=== PATIENT | female | born 1940 | race Caucasian/White ===

== ENCOUNTER → 2018-04-06 | Outpatient (CLI) | payer MEDICARE ==
--- NOTE | 2018-04-07 10:34 | MM ---
Reason for exam: screening (asymptomatic). Last mammogram was performed 2 years ago. History: Patient is postmenopausal. Physical Findings: A clinical breast exam by your physician is recommended on an annual basis and results should be correlated with mammographic findings. MG Screening Mammo w CAD Bilateral CC and MLO view(s) were taken. Prior study comparison: April 16, 2016, bilateral MG screening mammo w CAD. August 31, 2014, bilateral MG screening mammo w CAD. The breast tissue is heterogeneously dense. This may lower the sensitivity of mammography. Finding: There are typically benign round, linear calcifications in both breasts. There is no discrete abnormality. ASSESSMENT: Benign, BI-RAD 2 RECOMMENDATION: Routine screening mammogram of both breasts in 1 year.
== END ==
LOC: RADMAMWWP 14:32
PROVIDERS: ATTEND Family Medicine
DX: Z12.31 Encounter for screening mammogram for malignant neoplasm of breast (principal)
CPT/HCPCS: 77067

== ENCOUNTER → 2018-05-20 | Outpatient (CLI) | payer MEDICARE ==
--- NOTE | 2018-05-20 16:03 | BD ---
EXAMINATION TYPE: Axial Bone Density DATE OF EXAM: 05/20/2018 COMPARISON: 08/31/2014 CLINICAL HISTORY: Height: 60.5 IN Weight: 171 LBS RISK FACTORS HISTORY OF: Active: YES Postmenopausal woman: AGE 50 Take estrogen and/or progesterone medications: NOT NOW How long: AGE 50 - 55 MEDICATIONS: Thyroid Medications: YES Which medication: LEVOTHYROXINE How Lon+ YEARS Additional Medications: LEVOTHYROXINE, CALCIUM, VIT D,BLOOD PRESSURE MEDS, MULTI VITAMIN, LOW DOSE PIRIN, MAGNESIUM, FISH OIL, VIT C EXAM MEASUREMENTS: Bone mineral densitometry was performed using the [employer] System. Bone mineral density as measured about the Lumbar spine is: ----- L1-L4(G/cm2): 1.100 T Score Values are as follows: ----- L2: -1.0 ----- L3: -0.7 ----- L4: -0.5 ----- L1-L4: -0.7 Bone mineral density has: Increased 4.3% since study of: 08/31/2014 Bone mineral density about the R hip (g/cm2): 0.854 Bone mineral density about the L hip (g/cm2): 0.896 T Score values are as follows: -----R Neck: -1.3 -----L Neck: -1.0 -----R Total: -0.2 -----L Total: -0.4 Bone mineral density has: Increased 1.2% since study of: 08/31/2014 IMPRESSION: No evidence for osteoporosis or osteopenia. NOTE: T-SCORE=SD OF THE YOUNG ADULT MEAN.
== END ==
LOC: RADBDWWP 08:29
PROVIDERS: ATTEND Family Medicine
DX: Z13.820 Encounter for screening for osteoporosis (principal); Z78.0 Asymptomatic menopausal state
CPT/HCPCS: 77080

== ENCOUNTER 2018-06-17 08:22 | Day surgery (SDC) | payer MEDICARE ==
[2018-06-15 11:32] VITALS: BMI 32.1
[~2018-06-17 08:22] MED LIST: LACTATED RINGERS 1,000 ML IV SCH; LIDOCAINE 1% 20 ML VIAL (10MG/ML) FOR IV START INTRADERMA PRN
[2018-06-17 09:11] VITALS: RESP 18; TEMP 97.2
[2018-06-17] MEDS ORDERED: MIDAZOLAM 2 MG/2 ML VIAL ONE (09:12)
[2018-06-17] MEDS ORDERED: fentaNYL (PF) 50 MCG/ML 2 ML AMP ONE (09:12)
[2018-06-17] MEDS ORDERED: PROPOFOL 10 MG/ML 20 ML VIAL IV ONE (09:12)
--- NOTE | 2018-06-17 09:26 | P.PCN ---
Date of Procedure: 06/17/18 Procedure(s) Performed: BRIEF HISTORY: Patient is a 77-year-old pleasant white female, scheduled for an elective colonoscopy as a part of evaluation of prior history of colon polyps. Last colonoscopy was 3 years ago and was noted to have an adenoma. PROCEDURE PERFORMED: Colonoscopy. PREOPERATIVE DIAGNOSIS: History of colon polyps. IV sedation per Anesthesia. PROCEDURE: After informed consent was obtained, the patient, was brought into the endoscopy unit. IV sedation was administered by Anesthesia under continuous monitoring. Digital rectal examination was normal. Initially the Olympus CF- 160 flexible video colonoscope was then inserted in the rectum, gradually advanced into the cecum without any difficulty. Careful examination was performed as the scope was gradually being withdrawn. Ileocecal valve and the appendiceal orifice were visualized and appeared normal. Prep was excellent. Mucosa of the cecum, ascending colon, transverse colon, descending colon, sigmoid colon, and rectum appeared normal. Scattered left sided diverticulosis. Retroflexion was performed in the rectum and no lesions were seen. The patient tolerated the procedure well. IMPRESSION: Normal-appearing colon from rectum to cecum with no evidence of colorectal neoplasia Scattered sigmoid diverticulosis RECOMMENDATIONS: Findings of this examination were discussed with the patient as well as her family. She was advised to have a repeat surveillance colonoscopy in 5 years because of the prior history of colon polyps.
[2018-06-17 09:52] VITALS: BP 167/79; PULSE 60
== END 2018-06-17 10:29 | disposition home or self-care (01) ==
LOC: ORWHC2ENDO 08:22
PROVIDERS: ATTEND Internal Medicine Gastroenterology
DX: Z12.11 Encounter for screening for malignant neoplasm of colon (principal); K57.30 Diverticulosis of large intestine without perforation or abscess without bleeding; E07.9 Disorder of thyroid, unspecified; Z86.010 Personal history of colon polyps; Z79.82 Long term (current) use of aspirin; Z79.899 Other long term (current) drug therapy; Z88.0 Allergy status to penicillin; Z88.8 Allergy status to other drugs, medicaments and biological substances
CPT/HCPCS: J2250; J3010; J2704; G0105; 45378

== ENCOUNTER → 2020-08-08 | Outpatient (CLI) | payer MEDICARE ==
--- NOTE | 2020-08-08 16:13 | MR ---
EXAMINATION TYPE: MR shoulder RT wo con DATE OF EXAM: 08/08/2020 COMPARISON: None HISTORY: 79-year-old female M25.511, Right shoulder pain for 5 months. TECHNIQUE: Multiplanar, multisequence imaging of the right shoulder is performed without contrast. FINDINGS: The long head biceps tendon appears grossly intact and remains appropriate situated in the along the bicipital groove. Heterogeneity of the subscapularis tendon which appears intact. Moderate to severe degenerative change at the acromioclavicular joint with joint space narrowing, sub chondral edema, capsular hypertrophy, and marginal spurring. The spurring mildly impinges onto the un derlying myotendinous junction of the supraspinatus. There is a high-grade bursal sided tear of the anterior to mid supraspinatus tendon measuring 1.3 cm AP and 1.3 cm long. Thickening and heterogeneity of the remainder of both the supraspinatus and infraspinatus tendons. There is moderate effusion within the anterior subacromial/subdeltoid bursa and either fluid extendin g medially or ganglion cyst formation extending medially along the superior margin of the supraspinat us muscle belly measuring 5.5 cm long by 1.0 cm craniocaudal by 1.7 cm wide. There is isolated moderate atrophy of the teres minor muscle belly but no mass lesion within the quad rilateral space. Moderate diffuse thinning of superior half humeral head articular cartilage. Degenerative subchondral signal changes within the inferior glenoid. Degenerative signal in the superior labrum but without any perilabral cyst. Physiologic glenohumeral joint fluid. No Hill-Sachs deformity or os acromiale. No suspicious bone marrow replacement. IMPRESSION: 1. Marked diffuse rotator cuff tendinosis with a high-grade bursal sided tear of the anterior to mid supraspinatus tendon measuring 1.3 x 1.3 cm. Only a few articular sided fibers remain intact. 2. Moderate to severe AC joint OA with mild impingement onto the underlying cuff. 3. Isolated moderate fatty atrophy of the teres minor. No mass lesion within the quadrilateral space. 4. Moderate effusion in the subacromial/subdeltoid bursa, likely reactive, and an elongated 5.5 x 1.0 x 1.7 cm ganglion cyst extending medially along the superior margin of the supraspinatus muscle. 5. Mild degenerative change in the glenohumeral joint.
== END | disposition home or self-care (01) ==
LOC: RADMRIMAIN 10:30
PROVIDERS: ATTEND Family Medicine
DX: M75.111 Incomplete rotator cuff tear or rupture of right shoulder, not specified as traumatic (principal); M19.011 Primary osteoarthritis, right shoulder; M67.813 Other specified disorders of tendon, right shoulder; M62.511 Muscle wasting and atrophy, not elsewhere classified, right shoulder

== ENCOUNTER 2020-10-18 05:53 | Day surgery (SDC) | payer MEDICARE ==
[2020-10-16 13:03] VITALS: BMI 29.8
--- NOTE | 2020-10-17 15:31 | HP ---
HISTORY AND PHYSICAL REASON FOR ADMISSION: Surgery scheduled for 10/18/2020 HISTORY OF PRESENT ILLNESS: Sherry Ba is a 79-year-old patient seen with progressive right shoulder pain. We discussed options for treatment. She elected to proceed with arthroscopy. Consent was obtained. PAST MEDICAL HISTORY: Hypertension, hypothyroidism. PAST SURGICAL HISTORY: Lumbar decompression. MEDICATIONS: Levothyroxine, losartan. ALLERGIES: AMOXICILLIN, and PARAFON FORTE. SOCIAL HISTORY: She denies tobacco use. PHYSICAL EVALUATION OF THE RIGHT SHOULDER: Flexion 150 degrees, abduction 140 degrees, external rotation is 30 degrees with some pain, weakness. Tenderness along the anterior lateral acromion and rotator cuff insertion site. Impingement positive at 90. Drop-arm sign is positive. Cross adduction sign is positive. Distal neurovascular exam is intact. RADIOGRAPHS: Right shoulder radiographs revealed a type 2 acromion evidence for acromioclavicular joint osteoarthritis and cystic changes of the greater tuberosity. Right shoulder MRI revealed a rotator cuff tendon tear along with acromioclavicular joint osteoarthritis. IMPRESSION: 1. Right shoulder impingement with rotator cuff tear. 2. Right shoulder acromioclavicular joint osteoarthritis. 3. Hypertension. 4. Hypothyroidism. PLAN: Right shoulder arthroscopy with subacromial decompression, arthroscopic rotator cuff repair, Whitley procedure and debridement. Surgery scheduled for 10/18/2020. MMODL / IJN: [id number] /
[~2020-10-18 05:53] MED LIST changes: +DEXAMETHASONE SOD PHOSPHATE 4 MG/ML 1 ML VIAL IV ONE; -LACTATED RINGERS 1,000 ML IV SCH; +LIDOCAINE 1% (10MG/ML) FOR IV START INTRADERMA PRN; -LIDOCAINE 1% 20 ML VIAL (10MG/ML) FOR IV START INTRADERMA PRN; +ONDANSETRON 4 MG/2 ML VIAL IVP ONE
[2020-10-18] MEDS: LACTATED RINGERS 1,000 ML IV SCH ×2 (06:56→07:22)
[2020-10-18] MEDS ORDERED: HYDROmorphone 0.5 MG/0.5 ML SYRINGE IVP PRN (07:00)
[2020-10-18] MEDS ORDERED: MIDAZOLAM 2 MG/2 ML VIAL IVP ONE (07:02)
[2020-10-18] MEDS ORDERED: fentaNYL (PF) 50 MCG/ML 2 ML AMP ONE (07:25)
[2020-10-18] MEDS ORDERED: ROPIVACAINE 5 MG/ML 30 ML VIAL ONE (07:25)
[2020-10-18] MEDS ORDERED: ePHEDrine SULFATE/0.9% NACL/PF 50 MG/5 ML SYRINGE IV ONE (07:25)
[2020-10-18] MEDS ORDERED: SUCCINYLCHOLINE CHLORIDE 100 MG/5 ML SYR IV ONE (07:25)
[2020-10-18] MEDS ORDERED: GLYCOPYRROLATE 0.2 MG/ML 2 ML VIAL ONE (07:25)
[2020-10-18] MEDS ORDERED: LIDOCAINE 1% INJ 10MG/ML (20 ML MDV) ONE (07:25)
[2020-10-18] MEDS ORDERED: PROPOFOL 10 MG/ML 20 ML VIAL IV ONE (07:25)
[2020-10-18] MEDS ORDERED: MIDAZOLAM 2 MG/2 ML VIAL ONE (07:25)
[2020-10-18 08:51] VITALS: TEMP 96.8
--- NOTE | 2020-10-18 08:57 | P.OP ---
Date of Procedure: 10/18/20 Preoperative Diagnosis: Right shoulder impingement Postoperative Diagnosis: 1. Right shoulder rotator cuff tear 2. Right shoulder impingement 3. Right shoulder acromioclavicular joint osteoarthritis 4. Right shoulder partial long head biceps tendon tear Procedure(s) Performed: 1. Right shoulder arthroscopic rotator cuff repair 2. Right shoulder arthroscopic subacromial decompression 3. Right shoulder arthroscopic Whitley procedure 4. Right shoulder arthroscopic biceps tenotomy Implants: 15.5 Arthrex a lock anchor Anesthesia: GETA, regional (Interscalene block) Surgeon: Adrian Tracy Ocular Care Technologist #1: Ricardo Deglado Estimated Blood Loss (ml): 7 Pathology: none sent Condition: stable Disposition: PACU Indications for Procedure: 79-year-old patient seen with progressive right shoulder pain. After having treatment options discussed, she elected to proceed with arthroscopy. Operative Findings: See description of procedure Description of Procedure: Patient underwent an interscalene block by department of anesthesia. The patient was then taken to the operative suite. The patient underwent a general anesthetic by the department of anesthesia. The patient was placed into a lateral position and secured. There was appropriate padding of the bony prominence. Right shoulder was then prepped and draped in normal sterile orthopedic fashion. We placed the extremity in 10 pounds of longitudinal traction. A posterior incision was now made for a posterior working portal site. The trocar and cannula were inserted into the glenohumeral joint. Arthroscopy was initiated. Spinal needle was now inserted anteriorly, to ascertain the anterior working portal site. An incision was now made in that area, a trocar was inserted followed by a probe. There was some partial tearing and hyperemia long head biceps tendon. There was grade 1/2 chondromalacia changes of the inferior humeral head and grade 1 chondromalacia changes of the glenoid fossa. The labrum was probed and found to be stable. I performed an arthroscopic biceps tenotomy. The labrum was again probed and found to be stable. Instruments were now removed from glenohumeral joint. Utilizing the posterior working portal site, the trocar and cannula were inserted into the subacromial space. Arthroscopy initiated. I made an incision 2 fingerbreadths lateral to the acromion. I introduced my trocar followed by my ArthroCare ablator. I now began ablating thick subacromial bursal tissue, which exposed the undersurface of the anterior acromion. There was diminished subacromial space. There was a very prominent anterior acromion. A motorized bur was introduced and a subacromial decompression was performed. I also excised some osteophytes off the inferior aspect of the distal clavicle. The AC joint was visualized and noted to be fairly arthritic. The motorized bur was introduced in the anterior portal site and a Whitley procedure was performed without difficulty, decompressing the AC joint nicely. I turned my attention to the rotator cuff. There was a 1.5 cm rotator cuff tear. I debrided the margins getting down to stable tendon tissue. I abraded the footprint with a motorized bur. With the assistance of Ricardo VENCES and passed 3 everted mattress sutures good bites of rotator cuff tendon. I punched the hole in the footprint area for insertion of an anchor. All 6 limbs of suture were passed through the eyelet of a 5.5 Arthrex swivel lock anchor. I placed the eyelet into the pre- punch hole and held in position while Ricardo VENCES tension all the sutures and applied anchor with good fixation noted. All residual suture limbs were now clipped. We had good compression of the tendon along the entire footprint. Instruments now removed from the portal sites. All portal sites were approximated with nylon suture. Sterile dressings were applied followed by a shoulder sling. Ricardo VENCES assisted in this complex case. The patient was awakened, transferred to a bed, and taken to recovery in stable condition.
[2020-10-18 10:13] VITALS: RESP 17
--- NOTE | 2020-10-18 11:18 | P.ANPRN ---
Procedure Note - Anesthesia - Nerve Block Performed Right Interscalene Time Out Performed: Yes (07:01) Date of Procedure: 10/18/20 Procedure Start Time: : Procedure Stop Time: :16 Location of Patient: PreOp Indication: Acute Post-Operative Pain, Requested by Surgeon (Dr Tracy) Sedation Type: Sedate with meaningful contact maintained Preparation: Sterile Prep Position: Supine Catheter: None Needle Types: Pajunk Needle Gauge: Other (see comment) (22g) Ultrasound used to visualize needle placement: Yes Ultrasound used to observe medication spread: Yes Injectate: 0.5% Ropivacaine (see comment for volume) (20cc) Blood Aspirated: No Pain Paresthesia on Injection Noted: No Resistance on Injection: Normal Image Stored and Saved: Yes Events: Uneventful and Well Tolerated
[2020-10-18 11:23] VITALS: BP 141/79; PULSE 86
== END 2020-10-18 11:29 | disposition home or self-care (01) ==
LOC: OR 05:53
PROVIDERS: ATTEND Orthopaedic Surgery
DX: M75.101 Unspecified rotator cuff tear or rupture of right shoulder, not specified as traumatic (principal); M25.811 Other specified joint disorders, right shoulder; M19.011 Primary osteoarthritis, right shoulder; S46.111A Strain of muscle, fascia and tendon of long head of biceps, right arm, initial encounter; X58.XXXA Exposure to other specified factors, initial encounter; M94.211 Chondromalacia, right shoulder; M25.711 Osteophyte, right shoulder; I10 Essential (primary) hypertension; E03.9 Hypothyroidism, unspecified; Z98.890 Other specified postprocedural states; Z79.890 Hormone replacement therapy; Z79.899 Other long term (current) drug therapy; Z79.82 Long term (current) use of aspirin; Z88.0 Allergy status to penicillin; Z88.8 Allergy status to other drugs, medicaments and biological substances
CPT/HCPCS: 64415; 76942; 29826; 29827; 29824; C1713; J2250; J1100; J0690; J2405; J2001; J3010; J2795; J0330; J2704

== ENCOUNTER → 2021-07-20 | Outpatient (CLI) | payer MEDICARE ==
--- NOTE | 2021-07-24 10:51 | MM ---
Reason for exam: screening (asymptomatic). Last mammogram was performed 3 years and 3 months ago. History: Patient is postmenopausal. Physical Findings: A clinical breast exam by your physician is recommended on an annual basis and results should be correlated with mammographic findings. MG 3D Screening Mammo W/Cad Bilateral CC and MLO view(s) were taken. Prior study comparison: April 06, 2018, bilateral MG screening mammo w CAD. April 16, 2016, bilateral MG screening mammo w CAD. The breast tissue is heterogeneously dense. This may lower the sensitivity of mammography. There are benign appearing regional, linear calcifications bilaterally. There is no discrete abnormality. ASSESSMENT: Benign, BI-RAD 2 RECOMMENDATION: Routine screening mammogram of both breasts in 1 year.
== END | disposition home or self-care (01) ==
LOC: RADMAMWWP 11:01
PROVIDERS: ATTEND Family Medicine
DX: Z12.31 Encounter for screening mammogram for malignant neoplasm of breast (principal); Z78.0 Asymptomatic menopausal state
CPT/HCPCS: 77063; 77067

== ENCOUNTER → 2022-10-10 | Outpatient (CLI) | payer MEDICARE ==
[2022-10-10 14:39] LABS: African American GFR (CKD) 50 (>60 ml/min/1.73 sqM); Blood Urea Nitrogen 28 mg/dL (7-17); Non-African American GFR(CKD) 44 (>60 ml/min/1.73 sqM)
--- NOTE | 2022-10-11 08:02 | CT ---
EXAMINATION TYPE: CT sinus w con DATE OF EXAM: 10/10/2022 COMPARISON: None HISTORY: pulsating in right ear CT DLP: 435.9 mGycm Automated exposure control for dose reduction was used. CONTRAST: CT scan of the facial bones is performed with IV Contrast, patient injected with 65cc mL of Isovue 30 0. TECHNIQUE: CT scan of the sinuses is performed without contrast, axial images are obtained, coronal r eformatted images are also reviewed. FINDINGS: The paranasal sinuses including the frontal, ethmoid, sphenoid, and maxillary sinuses bila terally are well-aerated without abnormal opacification. The ostiomeatal complex is patent bilateral ly on the coronal images. Visualized portion of mastoid air cells show no abnormal opacification. The globes are intact bilate rally. Intraluminal external auditory canals appear symmetric. No evidence for cholesterol granuloma or chol esteatoma. IMPRESSION: No distinct abnormality to account for the patient's symptoms. If symptoms persist consid er MRI brain with IAC evaluation.
== END | disposition home or self-care (01) ==
LOC: RADCTMAIN 13:54
PROVIDERS: ATTEND Family Medicine
DX: H92.01 Otalgia, right ear (principal); H69.81 Other specified disorders of Eustachian tube, right ear; H70.11 Chronic mastoiditis, right ear
CPT/HCPCS: 82565; 84520; 36415; 70487; Q9967

== ENCOUNTER → 2022-12-16 | Outpatient (CLI) | payer MEDICARE ==
--- NOTE | 2022-12-16 12:25 | MR ---
EXAMINATION TYPE: MR angio head wo/neck wo/w con DATE OF EXAM: 12/16/2022 COMPARISON: CT 10/10/2022 HISTORY: Pulsatile tinnitus. TECHNIQUE: Utilizing 3-D [id number] intracranial MRA of the [place] was performed. FINDINGS: The vertebrobasilar and carotid systems are patent. Left vertebral artery is dominant. There is ectasia in the bilateral cavernous segment ICA greater on the right. 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 Anterior cerebral and middle cerebral arteries are patent. Anterior communicating artery patent and n o evidence of aneurysm. There is a hypoplastic A1 segment on the right. Posterior cerebral artery on the right originates from the anterior circulation. The carotid bifurcations appear to be patent bilaterally with no significant stenosis. Mild atheroscl erotic plaque. IMPRESSION: 1. No significant carotid bifurcation stenosis. 2. 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 3. There is question of thinning of the carotid plate along the right carotid canal. Aberrant ICA in the differential diagnosis. The previous sinus CT with contrast has been reviewed. Would recommend hi gh resolution post contrast IAC CT scan.
== END | disposition home or self-care (01) ==
LOC: RADMRIMAIN 09:04
PROVIDERS: ATTEND Otolaryngology
DX: I67.1 Cerebral aneurysm, nonruptured (principal); H93.19 Tinnitus, unspecified ear
CPT/HCPCS: 70544; 70549; A9585

== ENCOUNTER → 2023-06-24 | Outpatient (CLI) | payer MEDICARE ==
--- NOTE | 2023-06-24 19:10 | BD ---
EXAMINATION TYPE: Axial Bone Density DATE OF EXAM: 06/24/2023 CLINICAL HISTORY: 82 years old Female. ICD-10 CODE: Z78.0 ASYMPTOMATIC MENOPAUSAL STA Height: 60.25 Weight: 162 FRAX RISK QUESTIONS: History of Fracture in Adulthood: no Secondary Osteoporosis: no RISK FACTORS HISTORY OF: Surgery to Spine/Hip(right/left)/Wrist (right/left): no MEDICATIONS: Thyroid Medications: yes Which medication: Levothyroxine How Lon+ years EXAM MEASUREMENTS: Bone mineral densitometry was performed using the [employer] System. Bone mineral density as measured about the Lumbar spine is: ----- L1-L4(G/cm2): 1.078 T Score Values are as follows: ----- L1: -1.0 ----- L2: -0.9 ----- L3: -0.4 ----- L4: -1.2 ----- L1-L4: -0.9 Z Score Values are as follows: ----- L1: 0.6 ----- L2: 0.7 ----- L3: 1.2 ----- L4: 0.4 ----- L1-L4: 0.7 Bone mineral density has: Increased 4.1% since study of: 08/31/2014 Bone mineral density about the R hip (g/cm2): 0.963 Bone mineral density about the L hip (g/cm2): 0.911 T Score values are as follows: -----R Neck: -1.4 -----L Neck: -1.7 -----R Total: -0.4 -----L Total: -0.8 Z Score values are as follows: -----R Neck: 0.7 -----L Neck: 0.4 -----R Total: 1.6 -----L Total: 1.2 Bone mineral density has: Decreased -2.5% since study of: 08/31/2014 FRAX%s: The graph provided illustrates a 13.7% chance for a major osteoporotic fx and a 3.7% chance f or the hips probability for fx in 10 years time. IMPRESSION: Osteopenia (T Score between -2.5 and -1). There is slightly increased risk of fracture and the patient may be considered for treatment. Re-Screen 2-5 years. NOTE: T-SCORE=SD OF THE YOUNG ADULT MEAN.
--- NOTE | 2023-06-25 13:13 | MM ---
Reason for Exam: Screening (asymptomatic). Last mammogram was performed 1 year(s) and 11 month(s) ago. Patient History: Menarche at age 13. First Full-Term at age 22. Postmenopausal. Risk Values: Fanny 5 year model risk: 1.4%. NCI Lifetime model risk: 1.9%. Prior Study Comparison: 04/16/2016 Bilateral Screening Mammogram, [facility]. 04/06/2018 Bilateral Screening Mammogram, [facility]. 07/20/2021 Bilateral Screening Mammogram, [facility]. Tissue Density: The breast tissue is heterogeneously dense. This may lower the sensitivity of mammography. Findings: Analyzed By CAD. Left breast: There is no suspicious group of microcalcifications or new suspicious mass. There is a mass 14.6 cm from the nipple on RCC view, lateral aspect, posterior depth. Not definitively seen on other exams this may be in the axilla. Overall Assessment: Incomplete: need additional imaging evaluation, BI-RAD 0 Management: Diagnostic Breast Ultrasound of the right breast. [facility] will attempt to contact patient to return for supplemental views and ultrasound if indicated. Patient should continue monthly self-breast exams. A clinical breast exam by your physician is recommended on an annual basis. This exam should not preclude additional follow-up of suspicious palpable abnormalities. Note on Fanny scores and lifetime risk: 1. A Fanny score greater than 3% is considered moderate risk. If this is the case, consider specialist referral to assess eligibility for a risk reducing agent. 2. If overall lifetime risk for the development of breast cancer is 20% or higher, the patient may qualify for future screening with alternating mammogram and breast MRI. Electronically signed and approved by: Romaine Sheehan DO
== END | disposition home or self-care (01) ==
LOC: RADMAMWWP 07:59
PROVIDERS: ATTEND Family Medicine
DX: Z12.31 Encounter for screening mammogram for malignant neoplasm of breast (principal); M85.89 Other specified disorders of bone density and structure, multiple sites; Z78.0 Asymptomatic menopausal state
CPT/HCPCS: 77063; 77067; 77080

== ENCOUNTER → 2023-07-02 | Outpatient (CLI) | payer MEDICARE ==
--- NOTE | 2023-07-03 07:44 | USB ---
Reason for Exam: Additional evaluation requested from abnormal screening. Patient History: Menarche at age 13. First Full-Term at age 22. Postmenopausal. Risk Values: Fanny 5 year model risk: 1.4%. NCI Lifetime model risk: 1.9%. Technique: Method: Targeted. Prior Study Comparison: 04/06/2018 Bilateral Screening Mammogram, [facility]. 07/20/2021 Bilateral Screening Mammogram, [facility]. 06/24/2023 Bilateral MG 3D screening mammo w/cad, [facility]. Findings: The upper outer quadrant of the right breast, the axilla of the right breast and the retroareolar of the right breast were scanned. Targeted ultrasound right breast upper outer quadrant 9:00 to 12:00 including scanning of the subareolar region and axilla. * At the 9:00 position, 2 cm from the nipple, there is a tiny benign 4 mm cyst. * No other solid or cystic lesion. * No axillary lymphadenopathy. Overall Assessment: Probably benign, BI-RAD 3 Management: Diagnostic Mammogram of the right breast in 6 months. A clinical breast exam by your physician is recommended on an annual basis and results should be correlated with mammographic findings. This exam should not preclude additional follow-up of suspicious palpable abnormalities. Results were given to the patient verbally at the time of exam. Electronically signed and approved by: Gregory Casey M.D. Radiologis
== END | disposition home or self-care (01) ==
LOC: RADUSWWP 14:50
PROVIDERS: ATTEND Family Medicine
DX: R92.8 Other abnormal and inconclusive findings on diagnostic imaging of breast (principal); Z78.0 Asymptomatic menopausal state

== ENCOUNTER → 2024-02-06 | Outpatient (CLI) | payer MEDICARE ==
--- NOTE | 2024-02-06 15:01 | MR ---
EXAMINATION TYPE: MR angio head wo/neck wo/w con DATE OF EXAM: 02/06/2024 COMPARISON: 12/16/2022 HISTORY: 83-year-old female I67.1, nonruptured cerebral aneurysm. F/U comparison to prior MRA 12-16-22 . Technique: Xheo-ij-snohxw imaging of both the neck and head with rotational 3-D reconstructions. Jas tional multiple planar, multi sequence pre and postcontrast scanning of the head and neck before and after administration of 7 mL IV Gadavist. FINDINGS: Head: The bilateral vertebral and basilar arteries are patent. There is persistent origin right poste rior cerebral artery. Remainder of the posterior circulation is patent. Patent, small caliber left po sterior communicating artery. The bilateral internal carotid arteries are patent. No significant stenosis. Redemonstrated tiny 2 mm aneurysm from the lateral margin of the cavernous segment right ICA, axial i mage 90. In addition, there is a stable tiny 2 mm infundibulum from the origin of the right posterior communic ating artery, axial image 100. No other changes identified. NECK: There is normal course, caliber, and contour of the bilateral vertebral arteries as well as the commo n and internal carotid arteries. No significant stenosis. IMPRESSION: HEAD: 1. 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 2. Stable tiny 2 mm aneurysm lateral margin cavernous segment right ICA. 3. Stable tiny 2 mm infundibulum at the origin of the right PCOM. NECK: 4. Widely patent vertebral and carotid arteries of the neck. [facility], , 02/06/2024 2:58 PM
== END | disposition home or self-care (01) ==
LOC: RADMRIMAIN 08:40
PROVIDERS: ATTEND Psychiatry & Neurology Neurology
DX: I67.1 Cerebral aneurysm, nonruptured (principal)
CPT/HCPCS: 70544; 70549

== ENCOUNTER → 2024-02-10 | Outpatient (CLI) | payer MEDICARE ==
--- NOTE | 2024-02-10 08:49 | MM ---
Reason for Exam: Follow-up at short interval from prior study. Last screening mammogram was performed 8 month(s) ago. Patient History: Menarche at age 13. First Full-Term at age 22. Postmenopausal. Risk Values: Fanny 5 year model risk: 1.3%. NCI Lifetime model risk: 1.7%. Prior Study Comparison: 04/06/2018 Bilateral Screening Mammogram, [facility]. 07/20/2021 Bilateral Screening Mammogram, [facility]. 06/24/2023 Bilateral MG 3D screening mammo w/cad, [facility]. Tissue Density: Right: There are scattered areas of fibroglandular density. Findings: Analyzed By CAD. Stable probable lymph node back to at least 2018 right upper outer quadrant which was seen most recently and CC view lateral aspect. No new suspicious masses, calcifications or distortions. Overall Assessment: Benign, BI-RAD 2 Management: Screening Mammogram of both breasts in 1 year. Results were given to the patient verbally at the time of exam. Patient should continue monthly self-breast exams. A clinical breast exam by your physician is recommended on an annual basis. This exam should not preclude additional follow-up of suspicious palpable abnormalities. Note on Fanny scores and lifetime risk: 1. A Fanny score greater than 3% is considered moderate risk. If this is the case, consider specialist referral to assess eligibility for a risk reducing agent. 2. If overall lifetime risk for the development of breast cancer is 20% or higher, the patient may qualify for future screening with alternating mammogram and breast MRI. [facility], , 02/10/2024 8:45 AM. Electronically signed and approved by: Romaine Sheehan DO
== END | disposition home or self-care (01) ==
LOC: RADMAMWWP 07:49
PROVIDERS: ATTEND Family Medicine
DX: R92.8 Other abnormal and inconclusive findings on diagnostic imaging of breast
CPT/HCPCS: 77061; 77065